=== PATIENT | male | born 1975 | race Caucasian/White ===

== ENCOUNTER 2016-11-23 16:39 | Inpatient (IN) | payer OTHER ==
--- NOTE | ~2016-11-23 | CR72 ---
[facility] A Service of [facility] & [facility] RADIOLOGY TEXT RESULTS PATIENT: DOTTY RAE LOCATION: [facility] : [birth year] UNIT #: [id number] AGE: [address]: Jannette Owen MD SEX: M ORDER DR: [id number] [facility] [address] [facility]. [place], [place] [address] [id number] I MR#: [id number] Acc #: [id number] NAME: DOTTY RAE : 1975 SEX: M STUDY DATE/TIME: 11/27/2016 17:34 UNIT: [facility] ROOM: [facility] STUDY DESCRIPTION: CR Chest Single View Portable Attending Physician: Jannette Owen M.D. Ordering Physician: Jannette Owen M.D. Primary Care Physician: Chela Phan Aprn MEDICAL IMAGING REPORT This report is preliminary unless electronic signature is present EXAM Portable chest HISTORY Pneumonia times 1.5 weeks. COMPARISON 11/23/2016 FINDINGS Portable view of the chest demonstrates slight interval improvement in patient's right lower lobe, right middle lobe infiltrates. There is also a small amount of left upper lobe infiltrate which may actually be increased from the 11/23/2016 study. Mild cardiomegaly. No effusions. Mediastinum unremarkable. No pneumothorax. Dictated by... Abundio Gomez M.D. THIS IS AN ELECTRONICALLY VERIFIED REPORT Abundio Gomez M.D. at 11/28/2016 1:07 PM DOROTHY/erendira TD: 11/27/2016 20:51 JOB #: [id number] MEDICAL IMAGING REPORT Page 1 of 1 COPY
--- NOTE | ~2016-11-23 | EKG ---
PATIENT: DOTTY RAE UNIT #: [id number] Ventricular Rate: 90 BPM Atrial Rate: 90 BPM P-R Interval: 142 ms QRS Duration: 94 ms Q-T Interval: 394 ms QTC Calculation(Bezet): 481 ms P [place]: 51 degrees Calculated R [place]: 8 degrees Calculated T [place]: 52 degrees Diagnosis Line: Normal sinus rhythm Diagnosis Line: Possible Left atrial enlargement Diagnosis Line: Nonspecific T wave abnormality Diagnosis Line: Prolonged QT Diagnosis Line: Abnormal ECG Diagnosis Line: When compared with ECG of 23-NOV-2016 17:56, Diagnosis Line: No significant change was found Diagnosis Line: Confirmed by NUPUR CLARKE MD ([id number]) on Diagnosis Line: 11/24/2016 9:34:33 PM INTERPRETING MD: JESSICA
--- NOTE | ~2016-11-23 | HP ---
Unit #: [id number] #: [id number] Patient: DOTTY RAE [id number] [address] [place], [place] [address] [id number] I MR#: [id number] NAME: DOTTY RAE ROOM: 57439 Age: 41 Sex: M Admission Date: 11/23/2016 : 1975 Attending Physician: Pura Marie M.D. Primary Care Physician: Chela Phan Aprn HISTORY AND PHYSICAL CHIEF COMPLAINT Abdominal pain, nausea and vomiting. HISTORY OF PRESENT ILLNESS The patient is a 41-year-old male with a history of prediabetes, presented to the emergency room complaining of the nausea and abdominal pain for one week. The patient had the workup with the chest x-ray and the CT of the abdomen and chest that showed patient had a multifocal pneumonia. The patient was also found to have hypoxia with the saturations to 88 at room air and the patient was found to have a blood pressure in the range of 221/164. The patient denies any headache or any trauma to the head. The patient is being admitted for the above reasons. PAST MEDICAL HISTORY Prediabetes. PAST SURGICAL HISTORY None. HOME MEDICATIONS Chantix stopped one week ago. ALLERGIES No known drug allergies. FAMILY HISTORY No history of coronary artery disease or diabetes. SOCIAL HISTORY He smokes one-fourth of the pack per day, denies any alcohol use. REVIEW OF SYMPTOMS Fourteen-point review of symptoms performed and only pertinent positive findings as described above, remaining are negative. PHYSICAL EXAMINATION GENERAL APPEARANCE: On examination the patient is sitting on a bed not in acute distress. VITAL SIGNS: Temperature is 97.8, pulse 120, respiratory rate 16, blood pressure 221/164, saturation 99% at room air. HEENT: Head atraumatic, normocephalic. Pupils equal, round and reacting to light and accommodation. Extraocular movements are intact. Dry mucous Unit #: [id number] #: [id number] Patient: DOTTY RAE membranes. NECK: Supple. LUNGS: Decreased air entry at the bases. Positive for rhonchi. HEART: Regular rate and rhythm. ABDOMEN: Soft, positive bowel sounds. EXTREMITIES: No cyanosis. No clubbing. NEUROLOGIC: Awake, alert, oriented. No gross focal motor deficit. DIAGNOSTIC STUDIES LABORATORY DATA: Glucose 161, BUN 28, creatinine 1.6, sodium 131, potassium 3, chloride 96, bicarb 20, calcium 8.3, albumin 2.8, AST 43, ALT of 120, alkaline phosphatase 95, lipase 20 and troponin is 0.08, WBC 18, hemoglobin 11.4, hematocrit 36.4, platelets 384 and neutrophils 84.9. UA shows 3+ protein and 5 to 10 urine WBCs. IMAGING: CT of the chest and abdomen showed the patient had a multifocal pneumonia. CARDIOVASCULAR: The EKG shows normal sinus rhythm, nonspecific T-waves and prolonged QTc of 475. ASSESSMENT 1. Multifocal pneumonia. 2. Hyponatremia. 3. Hypokalemia. 4. Elevated troponin. 5. Acute kidney injury. PLAN 1. Plan is to admit the patient to the inpatient with the telemetry. 2. Continue with the IV antibiotics with the Rocephin and Zithromax. 3. Will have the Cardiology consult for the elevated troponins and the hypertensive urgency. 4. Check the echocardiogram. 5. Repeat the troponin q.8 h. x2. 6. Replace the potassium per protocol. 7. Check the lactic acid for the sepsis protocol. 8. Check the urine toxicology for the drug screen. Further recommendations will follow. Dictated by Damien Easton TD: 11/23/2016 20:04 JOB #: [id number] Unit #: [id number] #: [id number] Patient: DOTTY RAE HISTORY AND PHYSICAL Page 1 of 1 X X HISTORY AND PHYSICAL
--- NOTE | ~2016-11-23 | CT2 ---
[facility] A Service of [facility] & [facility] RADIOLOGY TEXT RESULTS PATIENT: DOTTY RAE LOCATION: [facility] 559-01 : [birth year] UNIT #: [id number] AGE: [address]: Jannette Owen MD SEX: M ORDER DR: [id number] [facility] [address] [place], [place] [address] [id number] E MR#: [id number] Acc #: [id number] NAME: DOTTY RAE : 1975 SEX: M STUDY DATE/TIME: 11/23/2016 17:02 UNIT: [facility] ROOM: STUDY DESCRIPTION: CT Abd and Pelv W Cont Attending Physician: Santo Torrse M.D. Ordering Physician: Santo Torres M.D. Primary Care Physician: Chela Phan Aprn MEDICAL IMAGING REPORT This report is preliminary unless electronic signature is present EXAM CT abdomen and pelvis 11/23/2016 HISTORY Abdomen pain, nausea for [address] exam was performed with one or more of the following radiation dose reduction techniques: automatic control, adjustment of mA and/or kV according to patient size, and iterative reconstruction. FINDINGS CT abdomen and pelvis performed with intravenous administration 100 mL Isovue-370. No prior studies available for comparison. Enteric contrast also administered. The lung bases show extensive airspace disease in the visualized right middle lobe, right lower lobe and to a much lesser extent in the left lower lobe. Areas of judah airspace consolidation are present. Findings are concerning for multifocal bilateral pneumonia. There is a small right pleural effusion which is not a drainable fluid collection. No left effusion is seen. There is an area of somewhat nodular airspace disease posteromedially at the left lung base image #6 measuring about 1.2 cm x 1.2 cm. Given extent of findings, I favor that this is an area of nodular pneumonia. Attention at short-interval followup is recommended. The heart is mildly enlarged. There is a trace amount of ascites adjacent to the liver. Not a drainable fluid collection. The liver is enlarged measuring 20 cm in craniocaudal extent. There is an area of focal fatty infiltration in the left hepatic lobe segment 4B adjacent to falciform ligament. Slightly heterogeneous overall appearance of the liver. Exact etiology unclear. Given the cardiac enlargement and evidence of mild to moderate generalized body wall edema, this may be a reflection of vascular congestion within the liver. Other etiologies not excluded. Correlate clinically. The gallbladder is unremarkable. The spleen, pancreas are unremarkable. The right adrenal STS. [facility] A Service of [facility] RADIOLOGY TEXT RESULTS PATIENT: DOTTY RAE LOCATION: [facility] 559-01 : [birth year] UNIT #: [id number] AGE: [address]: Jannette Owen MD SEX: M ORDER DR: gland is unremarkable. There is an indeterminate 1.3 cm x 1.7 cm x 1.3 cm nodule in the left adrenal gland which does not meet CT criteria for adenoma on basis of this examination. It is best further characterized with MRI if not previously evaluated. Patient not a candidate for MRI, consider adrenal protocol CT. Kidneys show a small 5-6 mm hypodense focus lower pole of the right kidney too small to characterize further but most likely a cyst. Could be further evaluated with elective ultrasound. No hydronephrosis or hydroureter. CT PELVIS: No inguinal adenopathy. Urinary bladder unremarkable. Small amount of free fluid in the pelvis. Not a drainable fluid collection. Haziness and stranding in the retroperitoneum adjacent to the bilateral lower psoas muscles and iliopsoas muscles. No associated drainable fluid collection. Process is bilateral and relatively symmetric though slightly more pronounced on the right. I favor that this is a manifestation of the patient's overall fluid status. The psoas muscles are symmetric without evidence of intramuscular abnormality. No pelvic or retroperitoneal adenopathy. There are some small gastrohepatic ligament nodes and portal nodes. These do not appear pathologically enlarged. The distal esophagus is unremarkable. Mild gastric distension with air and contrast material. Small bowel unremarkable. Appendix normal. Colon decompressed in the transverse and descending/sigmoid colon region without evidence of acute abnormality. The portal vein and its major tributaries are patent. The aorta is normal in caliber. The visualized aortic branch vessels are grossly patent. Bony structures show no acute abnormality. Mild to moderate generalized subcutaneous fat stranding and haziness more pronounced along the posterolateral aspects of the abdominal and upper pelvic body wall consistent with edema. Similar changes seen along the lateral aspects of the hips. IMPRESSION 1. Abnormal examination. Please see the complete dictation above for full details. Multifocal airspace disease in the visualized mid to lower lung zones more pronounced on the right than the left with areas of dense airspace consolidation in the visualized right middle and lower lobes. Extent of the pulmonary parenchymal abnormality is not fully visualized on these images. Correlate with chest radiograph and if felt warranted, CT examination of chest. Appearance favored to represent multifocal bilateral pneumonia more pronounced on right than left and followup to complete radiographic resolution is recommended. A component of the airspace disease at the left lung base posteromedially on image 6 has a nodular configuration measuring about 1.2 cm in diameter. I favor that this is simply a manifestation of the presumed pneumonia. Attention at followup recommended to confirm resolution. If this nodular density persists with clearance of other airspace process, consider CT/PET scan for further characterization. 2. Small right pleural effusion. Not a drainable fluid collection. [facility] A Service of [facility] RADIOLOGY TEXT RESULTS PATIENT: DOTTY RAE LOCATION: [facility] 559-01 : [birth year] UNIT #: [id number] AGE: [address]: Jannette Owen MD SEX: M ORDER DR: 3. There is mild cardiac enlargement. 4. Small-volume ascites adjacent to liver. Not a drainable fluid collection. 5. Hepatic enlargement up to about 20 cm in craniocaudal extent with slightly heterogeneous overall appearance of the hepatic parenchyma. No suspicious focal abnormality is seen. Cause for the appearance of the hepatic parenchyma is unclear. Given the cardiac enlargement and a suggestion of body wall edema, the possibility of vascular congestion could be considered as cause for the appearance of hepatic parenchyma. Please correlate with laboratory data and clinical presentation. 6. Gallbladder normal. 7. Indeterminate 1.3-1.7 cm nodule in the left adrenal gland not meeting criteria for adenoma on basis of this examination. Best fully characterized with adrenal protocol MRI if patient is candidate or adrenal protocol CT. These studies can be performed on an elective basis. 8. No acute abnormality is seen along the alimentary canal. Small bowel appendix and colon unremarkable. Mild distension of stomach with air and contrast material, felt to be physiologic in nature. 9. A 5-6 mm hypodense focus lower pole right kidney most likely a small cyst. Best further evaluated with elective ultrasound. 10. Mild to moderate body wall edema most pronounced in the posterolateral abdominal and upper pelvic body wall and along the posterolateral upper thighs. Dictated by... Jose Stoner M.D. THIS IS AN ELECTRONICALLY VERIFIED REPORT Jose Stoner M.D. at 11/30/2016 11:07 PM CRISTINE/sarai TD: 11/23/2016 18:30 JOB #: [id number] MEDICAL IMAGING REPORT Page 1 of 1 COPY
--- NOTE | ~2016-11-23 | CR72 ---
[facility] A Service of [facility] RADIOLOGY TEXT RESULTS PATIENT: DOTTY RAE LOCATION: [facility] : [birth year] UNIT #: [id number] AGE: [address]: Jannette Owen MD SEX: M ORDER DR: [id number] [facility] [address] [place], [place] [address] [id number] E MR#: [id number] Acc #: [id number] NAME: DOTTY RAE : 1975 SEX: M STUDY DATE/TIME: 11/23/2016 18:07 UNIT: [facility] ROOM: STUDY DESCRIPTION: CR Chest Single View Portable Attending Physician: Santo Torres M.D. Ordering Physician: Santo Torres M.D. Primary Care Physician: Chela Phan Aprn MEDICAL IMAGING REPORT This report is preliminary unless electronic signature is present EXAM Portable chest x-ray 11/23/2016 HISTORY Pneumonia seen on CT. FINDINGS AP radiograph of chest presented. Comparison to images of thorax from CT abdomen pelvis earlier same date. No acute-appearing bony abnormality. Mild cardiac enlargement. Lungs are well inflated. Borderline vascular prominence. This may be a reflection of some degree of vascular congestion. Airspace disease bilateral yyg-zx-uwivm lung zones significantly more pronounced on right than left with areas of dense airspace consolidation in the right lower lung zone. No pneumothorax. Small right pleural effusion seen on CT abdomen pelvis not well demonstrated on plain radiograph. I would favor the airspace disease represents bilateral multifocal pneumonia more pronounced on right than left. Appearance would be atypical for pulmonary edema. Please correlate with the patient's clinical exam. Followup to complete radiographic resolution strongly recommended. Dictated by... Jose Stoner M.D. THIS IS AN ELECTRONICALLY VERIFIED REPORT Jose Stoner M.D. at 11/29/2016 10:21 PM CRISTINE/sarai TD: 11/23/2016 19:05 [facility] A Service of [facility] RADIOLOGY TEXT RESULTS PATIENT: DOTTY RAE LOCATION: [facility] 559-01 : [birth year] UNIT #: [id number] AGE: [address]: Jannette Owen MD SEX: M ORDER DR: JOB #: [id number] MEDICAL IMAGING REPORT Page 1 of 1 COPY
--- NOTE | ~2016-11-23 | DS ---
Unit #: [id number] #: [id number] Patient: DOTTY RAE [id number] [address] [place], [place] [address] [id number] MR#: [id number] NAME: DOTTY RAE ROOM: 559 Age: 41 Sex: M Admission Date: 11/23/2016 : 1975 Discharge Date: 11/29/2016 Attending Physician: Jannette Owen M.D. Primary Care Physician: Chela Phan, Pharmacy Innovation Assistant DISCHARGE SUMMARY REASON FOR ADMISSION Abdominal pain, nausea and vomiting. HISTORY OF PRESENT ILLNESS/HOSPITAL COURSE The patient is a 41-year-old male with past history of pre-diabetes and possibly hypertension who presented secondary to nausea and abdominal pain. He had initial chest x-ray as well as CT abdomen and pelvis which raised the possibility of multifocal pneumonia. His CT abdomen and pelvis was otherwise unremarkable with the exception of a small adrenal nodule which was noted. His blood pressure was noted to be 221/164. He was admitted for the same. Initial urine toxicology screen was negative. Cardiac enzymes were cycled. His initial troponin was mildly elevated at 0.12 which later turned out to be his peak level. In regard to the same, consultation was placed to cardiology services, Dr. Mcgrath's service saw and evaluated the patient. The patient underwent 2D echocardiogram which did show a severely reduced ejection fraction of 15% to 20% with severe mitral regurgitation which was also noted. It was felt as though his systolic heart failure as well as the findings were likely secondary to his prolonged alcohol abuse that he had had through his lifetime. He was placed on appropriate afterload reduction as well as blood pressure control, however, his kidney function gradually declined and nephrology services were consulted. Dr. Arceo saw and evaluated the patient. The patient subsequently developed bradycardia as well as sinus pauses. In regard to the same, Dr. Mcgrath performed a cardiac catheterization on 11/29/2016 which revealed normal coronaries but it did show an ejection fraction closer to 35% to 40%. Dr. Arceo did evaluate and workup the patient for possible pheochromocytoma. Labs are currently pending and medications have been adjusted as per below. Dr. Arceo has recommended CMP on the week of 12/05/2016 as well as those results to be faxed to his office; a home blood pressure monitor to which patient should be checking his blood pressure on a daily basis. Unit #: [id number] #: [id number] Patient: DOTTY RAE The patient was strongly advised to discontinue alcohol altogether. His hemoglobin A1c this hospital admission was 6.6%. He will not be started on any diabetic medications at the present time but this will be diverted to his primary care provider. His LDL was 85, HDL 23, triglycerides 120, cholesterol 132. The patient did under an MRI of his kidneys with and without on, 11/27/2016, which did show an indeterminate left adrenal nodule 1.7 cm x 1.3 cm corresponding to the aforementioned CT. It does not demonstrate signal dropout and is not characteristic of an adrenal adenoma. However, short-term three month followup was recommended. The patient did have significantly elevated LFTs consistent with transaminitis with AST and ALT greater than 2000 on admission. It was likely felt to be secondary to passive congestion from his heart failure. On 11/28/2016, his discharge LFTs remain with an AST of 51 and ALT of 190 and they have decreased throughout his hospital course. At time of discharge, his creatinine currently stands at 1.7. His hemoglobin is 11.9, likely representing his baseline. He does have an MCV of 79.5. Blood cultures have not yielded any acute bacterial growth. Dr. Lamas pulmonary services was consulted in regard to his multifocal pneumonia and he recommended IV antibiotics while here and has since been transitioned to Omnicef at time of discharge. FINAL DISCHARGE DIAGNOSES 1. Acute hypoxic respiratory failure on admission, now improved. 2. Multifocal pneumonia, now improved. 3. Systolic heart failure with ejection fraction 35% to 40% seen on cardiac catheterization. 4. Alcohol-induced cardiomyopathy. 5. Gmdcjglu-rc-ucdyyn mitral regurgitation. 6. Sinus bradycardia. 7. Likely obstructive sleep apnea. Outpatient evaluation with Dr. Lamas currently pending. 8. Accelerated/hypertensive urgency. 9. Chronic kidney disease baseline creatinine 1.8. 10. Anemia. 11. Prior history of alcohol abuse. 12. Prior history of tobacco abuse. 13. Diabetes. Hemoglobin A1c 6.6% currently on diet modifications. 14. Adrenal nodule. Outpatient three-month follow up recommended. 15. Obesity. DISCHARGE MEDICATIONS 1. Tylenol 650 mg p.o. q.6 h. p.r.n. 2. Coreg 12.5 mg p.o. b.i.d. 3. Norvasc 5 mg p.o. b.i.d. 4. Omnicef 300 mg p.o. b.i.d. times 5 days. 5. Lasix 40 mg p.o. b.i.d. 6. Lipitor 20 mg p.o. daily. 7. Hydralazine 100 mg p.o. q.8 h. Unit #: [id number] #: [id number] Patient: DOTTY RAE 8. Minoxidil 2.5 mg p.o. b.i.d. 9. Altace 5 mg p.o. daily. 10. Aldactone 100 mg p.o. b.i.d. DISCHARGE CONDITION Stable. DISCHARGE DISPOSITION Home. FOLLOWUP Chela Phan, nurse practitioner at [facility] in 7-10 days. Dictated by... Damien Payne/zeke TD: 11/29/2016 20:46 JOB #: [id number] DISCHARGE SUMMARY Page 1 of 1 X Jannette Owen MD X DISCHARGE SUMMARY
--- NOTE | ~2016-11-23 | EKG ---
PATIENT: DOTTY RAE UNIT #: [id number] Ventricular Rate: 93 BPM Atrial Rate: 93 BPM P-R Interval: 172 ms QRS Duration: 98 ms Q-T Interval: 414 ms QTC Calculation(Bezet): 514 ms P [place]: 57 degrees Calculated R [place]: 7 degrees Calculated T [place]: 30 degrees Diagnosis Line: Normal sinus rhythm Diagnosis Line: Possible Left atrial enlargement Diagnosis Line: Nonspecific ST and T wave abnormality Diagnosis Line: Prolonged QT Diagnosis Line: Abnormal ECG Diagnosis Line: When compared with ECG of 24-NOV-2016 07:19, Diagnosis Line: Nonspecific T wave abnormality no longer evident Diagnosis Line: in Anterior leads Diagnosis Line: Confirmed by NUPUR CLARKE MD ([id number]) on Diagnosis Line: 11/27/2016 12:47:40 PM INTERPRETING MD: JESSICA
--- NOTE | ~2016-11-23 | CO ---
Unit #: [id number] #: [id number] Patient: DOTTY RAE [id number] [facility] [address]. [place], [place] [address] [id number] I MR#: [id number] NAME: DOTTY RAE ROOM: 559 Age: 41 Sex: M Admission Date: 11/23/2016 : 1975 Attending Physician: Jannette Owen M.D. Primary Care Physician: Dami Weber Aprn Consultation Date: 11/24/2016 CONSULTATION REPORT JOB NOTE: CC: [facility]. DAMI WEBRE APRN. REASON FOR CONSULTATION Hypertension and elevated troponin. HISTORY OF PRESENT ILLNESS This is a 41-year-old white male, who presented to the emergency room with a complaint of abdominal pain and nausea for one week. He reports shortness of breath on exertion, and leg edema. Positive for paroxysmal nocturnal dyspnea. He went to see his primary care physician in 08/2016, and felt he had a normal blood pressure at that time. He was told that he had prediabetes and was instructed to exercise and monitor his diet. He was not given any medications. He has some type of unemployment physical at work over months ago, where his blood pressure was elevated. He came to the emergency room, where he was found to be hypertensive with blood pressure of 221/164. He was treated with labetalol. CT of the abdomen revealed mild cardiac enlargement and bvux-[id number] body wall edema in the posterolateral abdomen and upper pelvic body. Chest x-ray findings are consistent with multifocal pneumonia. He was treated with IV antibiotics. He was found to be in acute kidney injury with creatinine of 1.6, the later leyda to 2.0. His initial troponin elevated at 0.08, that is now peaked to 0.12. His electrocardiogram had no acute ischemic changes. He has had no prior cardiac history or testing. Risk factors for ischemic heart disease includes hypertension, prediabetes, and nicotine abuse. Upon further questioning, the patient states he binge drinks over the weekend with at least 12 beers. PAST MEDICAL HISTORY 1. Prediabetes. 2. Active smoker. 3. EtOH abuse. PAST SURGICAL HISTORY No previous surgeries. SOCIAL HISTORY The patient is . He works in a warehouse. He states he is reasonably active. He denies illicit drug use, but binge drinks on the weekends at least 12 beers per weekend. ALLERGIES No known drug allergies. Unit #: [id number] #: [id number] Patient: DOTTY RAE HOME MEDICATIONS No prior home medications. REVIEW OF SYSTEMS CONSTITUTIONAL: Negative for weakness and fatigue. No fever or chills. Has a slight weight gain. HEENT: No headache, hearing or vision changes, difficulty with swallowing. No dizziness. CARDIOVASCULAR: Has no symptoms of angina. Denies palpitations. Positive for paroxysmal nocturnal dyspnea. No syncope or near syncope. RESPIRATORY: Positive for dyspnea on exertion. No cough or hemoptysis. GASTROINTESTINAL: Positive for abdominal pain. No constipation, melena, or nausea. EXTREMITIES: Positive for lower extremity edema. PHYSICAL EXAMINATION VITAL SIGNS: Blood pressure 174/129, heart rate 91, temperature 97.5, BMI 30. GENERAL: This is a pleasant young mildly obese white male, who is in no acute respiratory distress. NEUROLOGIC: He is awake, alert, and oriented. There are no focal weaknesses. NECK: Trachea is midline. No thyromegaly or lymphadenopathy. No jugular venous distention. HEART: S1, S2. No S3 or S4. No murmurs, rubs, or clicks. Regular rate and rhythm. CHEST: Rales in the right base. No wheezes or rhonchi. ABDOMEN: With tenderness in the right upper quadrant. No ascites. EXTREMITIES: With 2+ leg edema. TOOL ADJUSTER: Within normal limits. DIAGNOSTIC STUDIES LABORATORY RESULTS: Sodium 136, potassium 4.6, BUN 31, creatinine 2.0, glucose 126. Troponin 0.08 to 0.12 to 0.10. BNP 2925. Hemoglobin A1c 6.6. White count 19.8, hemoglobin 10.5, hematocrit 34.6, platelet count is 397. Urine tox screen negative. IMAGING STUDIES: Chest x-ray shows multifocal bilateral pneumonia. CT of the abdomen and pelvis shows multifocal airspace disease consistent with multifocal bilateral pneumonia. Mild cardiac enlargement. Small volume ascites adjacent to the liver. Hepatic enlargement. CARDIOVASCULAR STUDIES: EKG; normal sinus rhythm, rate of 95 beats per minute with nonspecific ST wave abnormalities. IMPRESSION 1. Pneumonia with questionable sepsis. 2. Acute kidney injury secondary to NSAID and low cardiac output state. 3. 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 4. Elevated LFTs secondary to hepatic congestion or EtOH hepatitis. 5. Newly diagnosed hypertension. 6. Elevated troponin, questionable etiology, cannot rule out non-STEMI. 7. Newly diagnosed diabetes mellitus type 2. PLAN 1. Cardiology was consulted for elevated troponin. We will check echocardiogram to evaluate left ventricular systolic function to redirect Unit #: [id number] #: [id number] Patient: DOTTY RAE fluid treatment accordingly. 2. Questionable nephrology opinion. 3. Control blood pressure with addition of beta-johann with hydralazine. 4. We will follow the patient with you. Thank you for allowing us to assist in this patient's care. Dictated by... Shree Garces A.P.R.N. for Damien Tejeda/omer TD: 11/27/2016 23:53 JOB #: [id number] CONSULTATION REPORT Page 1 of 1 X Shree Garces APRN X CONSULTATION REPORT
--- NOTE | ~2016-11-23 | MR95 ---
[facility] A Service of [facility] RADIOLOGY TEXT RESULTS PATIENT: DOTTY RAE LOCATION: [facility] 559-01 : [birth year] UNIT #: [id number] AGE: [address]: Jannette Owen MD SEX: M ORDER DR: [id number] [facility] [address] [place], [place] [address] [id number] I MR#: [id number] Acc #: [id number] NAME: DOTTY RAE : 1975 SEX: M STUDY DATE/TIME: 11/27/2016 15:15 UNIT: [facility] ROOM: [facility] STUDY DESCRIPTION: MR Kidneys WWo Contrast Attending Physician: Jannette Owen M.D. Ordering Physician: Prabhakar Arceo Jr., M.D. Primary Care Physician: Chela Phan Aprn MRI CENTER REPORT This report is preliminary unless electronic signature is present. EXAM MRI adrenal glands without and with IV gadolinium. HISTORY Left adrenal nodule on CT 11/23/2016. FINDINGS MRI of the adrenal glands was performed without and with IV gadolinium and is compared to CT 11/23/2016. The oval nodule in the medial left adrenal gland is again demonstrated, corresponding to the 1.3 cm x 1.7-cm nodule on recent CT. The lesion does not demonstrate signal dropout on opposed-phase scanning, and the appearance is not diagnostic of an adrenal adenoma. There is mild peripheral enhancement of the left adrenal nodule on the post-gadolinium scans, with a central hypoenhancing component, which is nonspecific. No additional adrenal nodule. Incidental tiny 4-mm cyst in the lower pole of the right kidney. No hydronephrosis. IMPRESSION Indeterminate left adrenal nodule corresponding to the 1.7 cm x 1.3-cm nodule on CT 11/23/2016. The lesion does not demonstrate signal dropout on the opposed-phase scan and is, therefore, not characteristic of an adrenal adenoma and remains technically indeterminate. Short-term followup noncontrast CT abdomen recommended in 3-4 months to evaluate for stability of this nodule. Dictated by... Maximiliano Ramirez M.D. THIS IS AN ELECTRONICALLY VERIFIED REPORT Maximiliano Ramirez M.D. at 11/27/2016 10:50 PM [facility] A Service of [facility] RADIOLOGY TEXT RESULTS PATIENT: DOTTY RAE LOCATION: [facility] 559- : [birth year] UNIT #: [id number] AGE: [address]: Jannette Owen MD SEX: M ORDER DR: ISAIAH/erendira TD: 11/27/2016 19:45 JOB #: [id number] MRI CENTER REPORT Page 1 of 1 COPY
--- NOTE | ~2016-11-23 | EKG ---
PATIENT: DOTTY RAE UNIT #: [id number] Ventricular Rate: 93 BPM Atrial Rate: 93 BPM P-R Interval: 166 ms QRS Duration: 100 ms Q-T Interval: 372 ms QTC Calculation(Bezet): 462 ms P [place]: 51 degrees Calculated R [place]: 7 degrees Calculated T [place]: 140 degrees Diagnosis Line: Normal sinus rhythm Diagnosis Line: Possible Left atrial enlargement Diagnosis Line: Left ventricular hypertrophy Diagnosis Line: Prolonged QT Diagnosis Line: Abnormal ECG Diagnosis Line: Diagnosis Line: Confirmed by NUPUR CLARKE MD ([id number]) on Diagnosis Line: 11/29/2016 10:24:17 PM INTERPRETING MD: JESSICA
--- NOTE | ~2016-11-23 | EKG ---
PATIENT: DOTTY RAE UNIT #: [id number] Ventricular Rate: 94 BPM Atrial Rate: 94 BPM P-R Interval: 142 ms QRS Duration: 96 ms Q-T Interval: 404 ms QTC Calculation(Bezet): 505 ms P [place]: 49 degrees Calculated R [place]: 24 degrees Calculated T [place]: 24 degrees Diagnosis Line: Normal sinus rhythm Diagnosis Line: Nonspecific T wave abnormality Diagnosis Line: Prolonged QT Diagnosis Line: Abnormal ECG Diagnosis Line: No previous ECGs available Diagnosis Line: Confirmed by PRIYA MITTAL MD ([id number]) on 11/24/2016 Diagnosis Line: 5:05:01 AM INTERPRETING MD: DAXA RAMIREZ
--- NOTE | ~2016-11-23 | CO ---
Unit #: [id number] #: [id number] Patient: DOTTY RAE [id number] [address] [place], [place] [address] [id number] I MR#: [id number] NAME: DOTTY RAE ROOM: 559 Age: 41 Sex: M Admission Date: 11/23/2016 : 1975 Attending Physician: Jannette Owen M.D. Primary Care Physician: Chela Phan Aprn Consultation Date: 11/24/2016 CONSULTATION REPORT REASON FOR CONSULTATION Renal insufficiency with a creatinine of 2. HISTORY OF PRESENT ILLNESS Mr. Rae is a 41-year-old male with an unremarkable past medical history with the exception of some "prediabetes," who presented to the emergency room with complaints of nausea and abdominal pain with some constipation. This had been going on for several days. The patient was initially diagnosed with multifocal pneumonia and started on antibiotics. However, evaluation here quickly suggested that this may be congestive heart failure from alcoholism and alcoholic cardiomyopathy and this was confirmed by an echocardiogram. He continues on the antibiotics, but is now getting treatment for congestive heart failure. He showed me lab on his phone from 09/2016 with a creatinine of 1.5. He had been told by his primary care physician that his renal function was a little abnormal. He had significant hypertension on admission which is a new diagnosis. However, there is a strong family history of hypertension. He has not used any NSAIDs recently other than some aspirin. He denies any history of kidney stones. There are no urinary complaints. He has noticed some swelling in his legs and has also noticed some dyspnea on exertion. PAST MEDICAL HISTORY Significant for prediabetes alcoholism. PAST SURGICAL HISTORY None. HOME MEDICATIONS Chantix. ALLERGIES No known drug allergies. FAMILY HISTORY Negative for kidney disease or dialysis. There is a family history of hypertension. SOCIAL HISTORY The patient does smoke. He says he stopped drinking alcohol a few months ago, before that he was drinking up to 12 beers a day. He smokes marijuana when he was younger, but no history of IV drug use. REVIEW OF SYSTEMS A complete 12-point review of systems was completed with the above Unit #: [id number] #: [id number] Patient: DOTTY RAE findings. In addition, he has not had any fevers or chills. No headaches or dizziness. No nosebleed. No sore throat. No earache. No chest pain. No palpitations. No hemoptysis. No vomiting with nausea. No diarrhea. No bright red blood per rectum or melena. No dysuria or hematuria. No rashes or itching. No flank pain. No night sweats or hot flashes. No intolerance to heat or cold. No bleeding issues. He thinks he may have been gaining some weight as of late. Unless otherwise indicated, the review of systems was negative. PHYSICAL EXAMINATION VITAL SIGNS: The patient is afebrile; pulse 98; respiratory rate 24; blood pressure still 207/139, it did drop to 124/103. I's and O's are positive by 1300 mL so far. GENERAL: This is a pleasant 41-year-old male, alert, sitting up in a chair in no acute distress. HEENT: Head is atraumatic and normocephalic. Eyes show pink conjunctivae. No nasal drainage or nosebleed. Oropharynx is moist with no thrush. He does have a fairly narrow posterior pharyngeal airway. NECK: Thick. No rigidity. HEART: Regular rate and rhythm with no gallop or rub appreciated. LUNGS: Shows some bibasilar rales more so on the right than the left. Breathing is nonlabored at rest. No wheezing. ABDOMEN: Protuberant, soft, nontender, bowel sounds are present. EXTREMITIES: Noteworthy for no lower extremity clubbing or cyanosis. He has 1+ pitting edema below the knees bilaterally. SKIN: Dry without rashes. MUSCULOSKELETAL: No CVA tenderness to palpation. NEUROLOGIC: Cranial nerves are grossly intact with no focal neurologic deficits. LYMPHATIC: There is no neck or cervical lymphadenopathy. PSYCHIATRIC: Mood and affect appear normal. DIAGNOSTIC STUDIES LABORATORY RESULTS: BNP was 2900. Liver function tests were quite elevated at 383 and 379 respectively with a normal total bilirubin. Albumin was just 2.3, Mag was 2.2. Urine culture is negative thus far. Chemistry this morning showed a sodium of 132, potassium 4.6, chloride 102, bicarb 18, glucose 126, BUN 31, creatinine of 2. CBC showed a white count of 19, hemoglobin 10.5, platelet count 397 with a slight left shift, no peripheral eosinophilia. Lactic acid level was high at 3.2. Urine drug screen was negative. CK level was 59. Admission potassium was just 3, admission sodium level 131, admission creatinine was 1.6. AST and ALT were high at 43 and 120 respectively. UA did show 3+ protein, but 0 to 2 red blood cells per high-powered field. No prior creatinines to compare these two. IMAGING STUDIES: Chest x-ray on admission showed vascular prominence with bilateral airspace disease with a small right pleural effusion. CT of the abdomen and pelvis did show some air space disease bilaterally. There was some ascites and fatty infiltration in the left hepatic lobe and a heterogeneous appearance to the liver, it was a 1.7 x 1.3 cm nodule in the left adrenal gland. Kidneys show a cyst in the lower pole of the right kidney with some body wall edema as well. ASSESSMENT AND PLAN 1. Acute on possible chronic kidney disease, stage 3. Again, the patient had a baseline creatinine of 1.5 in 09/2016. I certainly wonder if he Unit #: [id number] #: [id number] Patient: DOTTY RAE does not have some underlying hypertensive disease as he does have a family history. There also is an element of acute kidney injury which may be related to his hypertensive urgency and prerenal stress from cardiomyopathy. We will continue with aggressive congestive heart failure treatment. He does have some urinary protein which we will quantitate. I am also concerned about his low albumin but this may be more a function of his underlying liver issues than kidney losses. We will follow up serologies and make further recommendations for the need for any biopsy. 2. Congestive heart failure systolic in nature with an ejection fraction as reported as 20% by Dr. Mcgrath. He is on dobutamine and we will can continue IV Bumex tonight. 3. 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 The patient has stopped drinking. 4. Hypertensive urgency. We will continue diuresis. Hydralazine has been increased and I will also put him on some p.r.n. hydralazine as needed. 5. Questionable pneumonia, on antibiotics. 6. Admission hypokalemia. I certainly wonder if he does not have an underlying endocrine disorder considering his abnormal CT scan of the abdomen as far as his adrenal gland is concerned. I will be sending off renin and aldosterone levels with tomorrow morning's labs. I would like to thank Dr. Marie for this consult and the opportunity to participate in evaluation and care Mr. Leija. Dictated by... Prabhakar Arceo Jr., M.D. SJK/omer TD: 11/25/2016 02:55 JOB #: [id number] CONSULTATION REPORT Page 1 of 1 X Prabhakar Arceo MD X CONSULTATION REPORT
--- NOTE | ~2016-11-23 | CO ---
Unit #: [id number] #: [id number] Patient: DOTTY RAE [id number] [address] [place], [place] [address] [id number] I MR#: [id number] NAME: DOTTY RAE ROOM: 559 Age: 41 Sex: M Admission Date: 11/23/2016 : 1975 Attending Physician: Jannette Owen M.D. Primary Care Physician: Chela Phan Aprn CONSULTATION REPORT REASON FOR CONSULTATION Obstructive sleep apnea and pneumonia. CHIEF COMPLAINT Shortness of breath. 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 Abdominal CT showed a right middle lobe and right lower lobe infiltrate, and he has been admitted with the impression of pneumonia. Echocardiogram showed an ejection fraction of 15%. Patient's is mentioning that he stops breathing and also has witnessed apneas and loud snoring. Patient complains of daytime fatigue and sleepiness and also has been complaining of exertional dyspnea. REVIEW OF SYSTEMS Positive for pallor. No edema, no cyanosis, and no jaundice. The rest is per History of Present Illness. The rest of a 12-point review of systems has been reviewed and is negative. PHYSICAL EXAMINATION VITAL SIGNS: Temperature is 97, pulse 90, respirations 16, and blood pressure 130/70. NEUROLOGICAL: Awake, alert, and oriented, with no neurological deficits. HEENT: Pupils equal, round, and reactive to light and accommodation. Extraocular movements are intact. NECK: Supple. No JVD. CHEST: Bilateral air entry, bilateral mild rhonchi. GASTROINTESTINAL: Nontender and soft. Bowel sounds positive. EXTREMITIES: No edema. SKIN: No rashes and no ulcers. LYMPHATICS: No lymphadenopathy. DIAGNOSTIC STUDIES LABORATORY: Reviewed. IMAGING: Reviewed. ASSESSMENT AND PLAN Questionable pneumonia and obstructive sleep apnea. The patient will definitely benefit from an outpatient sleep study. Continue diuretics, repeat chest x-ray, and procalcitonin level. Discontinue antibiotics and Unit #: [id number] #: [id number] Patient: DOTTY RAE observe the patient. We will continue to monitor. Please see orders for detailed plans. We will arrange for an outpatient sleep study. Will start patient on BiPAP. Sleep hygiene was discussed with the patient. Weight loss is the tsai. Continue to optimize cardiac status of the patient. Thank you very much for this consultation. Dictated by... Damien Haque TD: 11/27/2016 15:16 JOB #: [id number] CONSULTATION REPORT Page 1 of 1 X Regan Lamas MD X CONSULTATION REPORT
[2016-11-23 14:55] LABS: URINE SOURCE CLEAN CATCH
[2016-11-23 15:00] LABS: URINE APPEARANCE CLEAR; URINE BILIRUBIN NEG (NEG); URINE BLOOD 1+ (NEG); URINE COLOR YELLOW; URINE GLUCOSE NEG (NEG); URINE KETONE NEG (NEG); URINE LEUKOCYTE ESTERASE NEG (NEG); URINE NITRATE NEG (NEG); URINE PH 5.5 (5-8); URINE PROTEIN 3+ (NEG)
[2016-11-23 15:01] LABS: CULTURE INDICATED? YES; URBCS1 AUWI 0-2 /[HPF] (0-2); URINE BACTERIA AUWI NEG (NEGATIVE); URINE SQUAMOUS EPITHELIAL CELL FEW /[HPF]
[2016-11-23 15:13] LABS: URINE GRANULAR CAST 0-2 /[HPF]; URINE WHITE BLOOD CELL CAST 0-2 /[HPF]
[2016-11-23 15:40] LABS: BASOPHIL# 0.1 X10e3 (0-0.3); BASOPHIL% 0.3 % (0-2.5); EOSINOPHIL# 0.1 X10e3 (0-0.7); EOSINOPHIL% 0.4 % (0.0-7.0); HEMATOCRIT 36.4 % (38.0-50.0); HEMOGLOBIN 11.4 gm/dL (13.0-16.0); LYMPHOCYTE# 1.6 X10e3 (1.0-3.5); LYMPHOCYTE% 8.9 % (17.0-45.0); MEAN CELL VOLUME 81.2 FL (83-96); MEAN CORPUSCULAR HEMOGLOBIN 25.4 PG (28-34); MEAN CORPUSCULAR HGB CONC 31.3 g/dL (30-36); MEAN PLATELET VOLUME 8.5 FL (6.5-11.5); MONOCYTE% 5.5 % (3.0-12.0); NEUTROPHIL# 15.3 X10e3 (1.5-7.1); NEUTROPHIL% 84.9 % (40-75); PLATELET COUNT 384 X10e3 (140-420); RED BLOOD COUNT 4.49 X10e (3.90-5.60); RED CELL DISTRIBUTION WIDTH 17.5 % (11.0-15.5)
[2016-11-23 15:41] LABS: DIFF IND YES
[2016-11-23 15:59] LABS: ALBUMIN SERUM 2.8 g/dL (3.5-5.0); BILIRUBIN, DIRECT 0.2 mg/dL (0.0-0.2); BILIRUBIN,INDIRECT 0.3 mg/dL (0.0-0.9); BILIRUBIN,TOTAL 0.5 mg/dL (0.2-2.0); BUN/CREATININE RATIO 17.5; CALCIUM SERUM 8.3 mg/dL (8.4-10.2); CREATININE SERUM 1.6 mg/dL (0.6-1.4); GLOM FILT RATE Estimated 53.5 mL/min (>60); PROTEIN TOTAL SERUM 7.1 g/dL (6.0-8.3)
[2016-11-23 16:03] LABS: RBC NORMAL YES
[2016-11-23 16:17] LABS: PLATELET ESTIMATE INCREASED (NORMAL)
[2016-11-23 18:35] LABS: CK TOTAL 59 IU/L (36-174)
[2016-11-23] MEDS ORDERED: NO MEDICATIONS (20:30)
[2016-11-23 21:02] LABS: AMPHETAMINE NEG (NEG); BARBITURATES NEG (NEG); BENZODIAZEPINES NEG (NEG); COCAINE NEG (NEG); MARIJUANA NEG (NEG); OPIATES NEG (NEG); TRICYCLIC ANTIDEPRESSANTS NEG (NEG); U METHADONE NEG (NEG)
[2016-11-24 05:40] LABS: BASOPHIL# 0.1 X10e3 (0-0.3); BASOPHIL% 0.3 % (0-2.5); HEMATOCRIT 34.6 % (38.0-50.0); HEMOGLOBIN 10.5 gm/dL (13.0-16.0); LYMPHOCYTE# 1.9 X10e3 (1.0-3.5); LYMPHOCYTE% 9.8 % (17.0-45.0); MEAN CELL VOLUME 82.9 FL (83-96); MEAN CORPUSCULAR HEMOGLOBIN 25.3 PG (28-34); MEAN CORPUSCULAR HGB CONC 30.5 g/dL (30-36); MEAN PLATELET VOLUME 8.3 FL (6.5-11.5); MONOCYTE# 1.2 X10e3 (0-1.0); MONOCYTE% 6.2 % (3.0-12.0); NEUTROPHIL# 16.6 X10e3 (1.5-7.1); NEUTROPHIL% 83.7 % (40-75); PLATELET COUNT 397 X10e3 (140-420); RED BLOOD COUNT 4.17 X10e (3.90-5.60); RED CELL DISTRIBUTION WIDTH 17.1 % (11.0-15.5); WHITE BLOOD COUNT 19.8 X10e3 (4.0-10.5)
[2016-11-24 05:45] LABS: DIFF IND NO
[2016-11-24 06:24] LABS: BUN/CREATININE RATIO 15.5; CALCIUM SERUM 7.8 mg/dL (8.4-10.2); GLOM FILT RATE Estimated 40.8 mL/min (>60); POTASSIUM 4.6 mmol/L (3.5-5.1)
[2016-11-24 08:06] LABS: ALBUMIN SERUM 2.3 g/dL (3.5-5.0); BILIRUBIN, DIRECT 0.4 mg/dL (0.0-0.2); BILIRUBIN,INDIRECT 0.4 mg/dL (0.0-0.9); BILIRUBIN,TOTAL 0.8 mg/dL (0.2-2.0); PROTEIN TOTAL SERUM 5.5 g/dL (6.0-8.3)
[2016-11-24 21:01] LABS: CREATININE,RANDOM URINE 10 mg/dL; TOTAL PROTEIN,RANDOM URINE <10 mg/dl (<10)
[2016-11-25 07:53] LABS: ALBUMIN SERUM 2.3 g/dL (3.5-5.0); BILIRUBIN,TOTAL 0.8 mg/dL (0.2-2.0); BUN/CREATININE RATIO 16.66; CALCIUM SERUM 7.9 mg/dL (8.4-10.2); CREATININE SERUM 1.8 mg/dL (0.6-1.4); GLOM FILT RATE Estimated 46.4 mL/min (>60); MAGNESIUM 1.8 mg/dL (1.6-3.0); POTASSIUM 3.1 mmol/L (3.5-5.1); PROTEIN TOTAL SERUM 5.7 g/dL (6.0-8.3)
[2016-11-26 06:43] LABS: ALBUMIN SERUM 2.3 g/dL (3.5-5.0); BILIRUBIN,TOTAL 0.5 mg/dL (0.2-2.0); BUN/CREATININE RATIO 17.5; CALCIUM SERUM 7.9 mg/dL (8.4-10.2); CREATININE SERUM 1.6 mg/dL (0.6-1.4); GLOM FILT RATE Estimated 53.5 mL/min (>60); MAGNESIUM 2.1 mg/dL (1.6-3.0); POTASSIUM 3.6 mmol/L (3.5-5.1); PROTEIN TOTAL SERUM 5.3 g/dL (6.0-8.3)
[2016-11-27 04:43] LABS: COMPLEMENT C3 121 mg/dL (90-180); COMPLEMENT C4 28 mg/dL (16-47)
[2016-11-27 05:27] LABS: HEMATOCRIT 35.7 % (38.0-50.0); HEMOGLOBIN 11.3 gm/dL (13.0-16.0); MEAN CELL VOLUME 80.7 FL (83-96); MEAN CORPUSCULAR HEMOGLOBIN 25.5 PG (28-34); MEAN CORPUSCULAR HGB CONC 31.6 g/dL (30-36); MEAN PLATELET VOLUME 7.1 FL (6.5-11.5); RED BLOOD COUNT 4.43 X10e (3.90-5.60)
[2016-11-27 05:57] LABS: ALBUMIN SERUM 2.5 g/dL (3.5-5.0); BILIRUBIN,TOTAL 0.8 mg/dL (0.2-2.0); BUN/CREATININE RATIO 17.64; CALCIUM SERUM 8.1 mg/dL (8.4-10.2); CREATININE SERUM 1.7 mg/dL (0.6-1.4); GLOM FILT RATE Estimated 49.7 mL/min (>60); POTASSIUM 3.5 mmol/L (3.5-5.1); PROTEIN TOTAL SERUM 5.8 g/dL (6.0-8.3)
[2016-11-27 12:25] LABS: CHOLESTEROL 132 mg/dL (0-200); HDL CHOLESTEROL 23 mg/dL (29-75); LDL CHOLESTEROL 85 mg/dL ([, -130]); LDL/HDL RATIO 4 RATIO (0-4); TRIGLYCERIDES 120 mg/dL (10-160)
[2016-11-28 00:52] LABS: HA AB IGM (HEPPAN) Nonreactive (()); HB CORE AB IGM (HEPPAN) Nonreactive (Nonreactive); HB S AG (HEPPAN) Nonreactive (Nonreactive); HEP C AB (HEPPAN) Nonreactive (Nonreactive); HEP C AB SIGNAL TO CUTOFF 0.02 ratio (<1.00)
[2016-11-28 07:04] LABS: ALBUMIN SERUM 2.5 g/dL (3.5-5.0); BILIRUBIN,TOTAL 0.8 mg/dL (0.2-2.0); BUN/CREATININE RATIO 16.87; CALCIUM SERUM 8.6 mg/dL (8.4-10.2); CREATININE SERUM 1.6 mg/dL (0.6-1.4); GLOM FILT RATE Estimated 53.5 mL/min (>60); POTASSIUM 4.3 mmol/L (3.5-5.1); PROTEIN TOTAL SERUM 5.3 g/dL (6.0-8.3)
[2016-11-28 11:55] LABS: ALDOSTERONE SERUM 1 ng/dL (***)
[2016-11-28 23:01] LABS: ANA SCREEN Negative (Negative); MYELOPEROXIDASE AB (PNL) <1.0 AI (<1.0); PROTEINASE-3 AB (PNL) <1.0 AI (<1.0)
[2016-11-29 05:12] LABS: HEMATOCRIT 37.9 % (38.0-50.0); HEMOGLOBIN 11.9 gm/dL (13.0-16.0); MEAN CELL VOLUME 79.5 FL (83-96); MEAN CORPUSCULAR HGB CONC 31.4 g/dL (30-36); MEAN PLATELET VOLUME 6.7 FL (6.5-11.5); RED BLOOD COUNT 4.76 X10e (3.90-5.60); RED CELL DISTRIBUTION WIDTH 18.2 % (11.0-15.5); WHITE BLOOD COUNT 10.8 X10e3 (4.0-10.5)
[2016-11-29 05:26] LABS: INR 1.2; PROTHROMBIN TIME (PATIENT) 12.7 SECONDS (9.6-11.5)
[2016-11-29 06:24] LABS: BUN/CREATININE RATIO 17.05; CALCIUM SERUM 8.7 mg/dL (8.4-10.2); CREATININE SERUM 1.7 mg/dL (0.6-1.4); GLOM FILT RATE Estimated 49.7 mL/min (>60); POTASSIUM 3.8 mmol/L (3.5-5.1)
[2016-11-29] MEDS ORDERED: HYDRALAZINE HC100 MG PO (13:15)
[2016-11-29] MEDS ORDERED: MINOXIDIL2.5 MG PO (13:16)
[2016-11-29] MEDS ORDERED: RAMIPRIL5 MG PO (13:19)
[2016-11-29] MEDS ORDERED: ALDACTONE100 MG PO (13:20)
[2016-11-29] MEDS ORDERED: ACETAMINOPHEN325 MG PO (13:22)
[2016-11-29] MEDS ORDERED: CARVEDILOL12.5 MG PO (13:23)
[2016-11-29] MEDS ORDERED: NORVASC10 MG PO (13:23)
[2016-11-29] MEDS ORDERED: CEFDINIR300 M2 PO (13:24)
[2016-11-29] MEDS ORDERED: FUROSEMIDE40 MG PO (13:25)
[2016-11-29] MEDS ORDERED: LIPITOR20 MG PO (13:26)
[2016-12-01 11:29] LABS: METANEPHRINES URINE 512 mcg/24 h (36-190); NORMETANEPHRINE URINE 526 mcg/24 h (35-482)
== END 2016-11-29 14:39 | disposition home or self-care (01) | DRG 286 ==
LOC: CED 16:39 → CEDOF 19:00 → C5B 21:46
PROVIDERS: Emergency Medicine; Family Medicine; Internal Medicine; Internal Medicine Cardiovascular Disease; Internal Medicine Nephrology
PROC: B24BZZZ Ultrasonography of Heart with Aorta (ICD-10-PCS; 2016-11-24)
PROC: 4A023N7 Measurement of Cardiac Sampling and Pressure, Left Heart, Percutaneous Approach (ICD-10-PCS; principal; 2016-11-29)
PROC: B2111ZZ Fluoroscopy of Multiple Coronary Arteries using Low Osmolar Contrast (ICD-10-PCS; 2016-11-29)
PROC: B2151ZZ Fluoroscopy of Left Heart using Low Osmolar Contrast (ICD-10-PCS; 2016-11-29)
DX: I13.0 Hypertensive heart and chronic kidney disease with heart failure and stage 1 through stage 4 chronic kidney disease, or unspecified chronic kidney disease (principal); I50.23 Acute on chronic systolic (congestive) heart failure; J96.01 Acute respiratory failure with hypoxia; A41.9 Sepsis, unspecified organism; J18.9 Pneumonia, unspecified organism; I42.9 Cardiomyopathy, unspecified; N17.9 Acute kidney failure, unspecified; N18.3 Chronic kidney disease, stage 3 (moderate); E11.9 Type 2 diabetes mellitus without complications; D64.9 Anemia, unspecified; E87.1 Hypo-osmolality and hyponatremia; I42.6 Alcoholic cardiomyopathy; E86.0 Dehydration; I16.0 Hypertensive urgency; F17.210 Nicotine dependence, cigarettes, uncomplicated; E87.6 Hypokalemia; K59.00 Constipation, unspecified; F10.20 Alcohol dependence, uncomplicated; G47.33 Obstructive sleep apnea (adult) (pediatric); I34.0 Nonrheumatic mitral (valve) insufficiency
CPT/HCPCS: 36415; 71010; 74177; 74183; 80048; 80053; 80061; 80074; 80076; 80307; 81003; 82088; 82150; 82308; 82384; 82530; 82550; 82570; 82947; 83036; 83520; 83605; 83690; 83735; 83835; 83880; 84132; 84156; 84244; 84484; 85025; 85027; 85610; 85730; 86021; 86038; 86039; 86160; 86334; 87040; 87086; 93005; 93306; 94660; 94760; 96361; 96374; 96375; 99285; A9577; C1769; C1887; C1894; C9113; J0360; J0456; J0696; J1170; J1250; J1644; J1650; J2250; J2270; J2405; J3010; J3475; Q9967

== ENCOUNTER 2016-12-09 11:16 | Inpatient (IN) | payer OTHER ==
--- NOTE | ~2016-12-09 | CO ---
Unit #: [id number] #: [id number] Patient: DOTTY RAE [id number] [id number] [facility]. [place], [place] [address] [id number] I MR#: [id number] NAME: DOTTY RAE ROOM: 337 Age: 41 Sex: M Admission Date: 12/09/2016 : 1975 Attending Physician: Jannette Owen M.D. Primary Care Physician: Chela Phan Aprn Consultation Date: 12/09/2016 CONSULTATION REPORT REASON FOR CONSULTATION Acute renal failure and hyperkalemia. HISTORY OF PRESENT ILLNESS This 41-year-old white male was just recently discharged on 11/29/2016 after being admitted for hypertensive urgency, acute kidney injury, and systolic heart failure. He had multiple tests. The culmination was that he had renal insufficiency, likely on the basis of hypertension and my partner, Dr. Arceo, was searching for a secondary cause of his hypertension. The patient also had a cardiac cath, that showed and ejection fraction of 35% to 40% and no obstructive disease. He was sent home with close followup with his primary care physician, Dr. Arceo, and he was set up for some type of scan at [facility], that I do not know the details. He was found to have an adrenal nodule. He comes back in to the ER after the PCP labs resulted showing a potassium of 6.5, BUN and creatinine of 84 and 4.2. On 11/29/2016, his creatinine was 1.7. His blood pressure in emergency room also was low at 103/79. The patient has home blood pressure showing systolic 110s and 120s. When he was in the hospital 10 days ago, his blood pressure was recorded as high as 220/160. The patient has not had any specific complaints. He said he has been eating and drinking okay. He has not been having nausea, vomiting, or diarrhea. He is not taking NSAIDs. He is a former alcoholic, but has not used alcohol in over 6 months. He also is a smoker and has not smoked in 2 weeks. PAST MEDICAL HISTORY 1. Prediabetes. 2. Newly diagnosed uncontrolled hypertension. 3. Newly diagnosed renal insufficiency. 4. Left adrenal nodule. 5. Systolic heart failure with an ejection fraction of 35% to 40% and severe mitral valve regurgitation by 11/2016 echo. SOCIAL HISTORY He is . He has three children. He works in the [employer] business. His mother and father are here and very supportive. He quit smoking two weeks ago and quit drinking alcohol heavily about 6 months ago. FAMILY HISTORY Negative for renal disease and positive for hypertension. REVIEW OF SYSTEMS He denies blurry vision. He denies headaches. He denies shortness of breath. He denies chest pain. He denies heart palpitations. He denies Unit #: [id number] #: [id number] Patient: DOTTY RAE abdominal pain, nausea, or vomiting. No urinary symptoms. No swelling. Other 13 systems reviewed unless noted are negative. PHYSICAL EXAMINATION VITAL SIGNS: Current blood pressure is 110/72, heart rate is 85. GENERAL: He is an anxious white male, who is in no acute distress. HEENT: Extraocular muscles are intact. No eye drainage or icterus. Oropharynx is clear without lesion. NECK: Supple without JVD, thyromegaly, or carotid bruit. CHEST: Clear to auscultation bilaterally. CARDIAC: S1 and S2. Normal sinus rhythm. No gallop or rub. ABDOMEN: Soft, nontender, nondistended. Positive bowel sounds. EXTREMITIES: No cyanosis, clubbing, or edema. DIAGNOSTIC STUDIES LABORATORY RESULTS: Shows a sodium 129, potassium 6.5, chloride 101, bicarbonate of 15, BUN of 84, creatinine of 4.2, glucose of 166, albumin of 2.5. Urinalysis; negative blood, negative protein. Hemoglobin of 13, white blood cell count of 13, platelet count of 267. On 11/25/2016, renin was 16, BECKY was negative, ANCA was negative, aldosterone is 1, serum immunofixation was negative. Urine metanephrines were elevated at 512. Urine catecholamine was 56 and normal. On 11/29/2016, creatinine was 1.7. HOME MEDICATIONS Coreg 12.5 mg b.i.d., Lipitor 20 mg daily, Lasix 40 mg b.i.d., Norvasc 10 mg daily, minoxidil 2.5 mg b.i.d. He completed a course of Omnicef, Altace 5 mg daily, and Aldactone 100 mg b.i.d. ASSESSMENT AND PLAN 1. Acute renal failure and hyperkalemia. I think this is most likely due to decreased renal perfusion related to relative low blood pressure in the setting of Altace and Aldactone. The patient looks dry on exam, and he has a benign urinalysis, so I plan to bump up his normal saline, and I would like to have his blood pressure rise to 140s to 150s range as he likely has been hypertensive for a very long time and will be corrected slowly. 2. Hyperkalemia, certainly this is concerning that he may need dialysis. He has had albuterol, insulin and D50, Kayexalate and is now being hydrated. He is making urine, so hopefully he will excrete potassium and not require dialysis for removal. 3. Systolic heart failure with an ejection fraction of 35% to 40% with severe mitral regurgitation. He had an 11/2016 echo and also had an 11/2016 cardiac cath and has seen Dr. Mcgrath. There is no evidence that he is in congestive heart failure at present. 4. Uncontrolled hypertension, now with relative hypotension. The patient presented to the emergency room 10 days ago with uncontrolled hypertension and was undergoing a workup for secondary causes. This workup will be continued. Again today, he is over controlled on his blood pressure and his medicines will be held. Thank you very much for allowing me to see Dotty Rae in consultation. We will follow closely with you. Dictated by... Cheyenne Jett M.D. STEVE/omer Unit #: [id number] #: [id number] Patient: DOTTY RAE TD: 12/10/2016 06:06 JOB #: [id number] CC: Prabhakar Arceo Jr., M.D. CONSULTATION REPORT Page 1 of 1 X Cheyenne Jett MD CONSULTATION REPORT
--- NOTE | ~2016-12-09 | HP ---
Unit #: [id number] #: [id number] Patient: DOTTY RAE [id number] [address] [address] [id number] I MR#: [id number] NAME: DOTTY RAE ROOM: 337 Age: 41 Sex: M Admission Date: 12/09/2016 : 1975 Attending Physician: Pura Marie M.D. Primary Care Physician: Chela Phan Aprn HISTORY AND PHYSICAL CHIEF COMPLAINT Abnormal labs. HISTORY OF PRESENT ILLNESS The patient is a 41-year-old male with the history of pre-diabetes, hypertension, and chronic kidney disease, brought to the emergency room from the PCP office. The patient was recently discharged from the hospital on 11/29/2016 with a prolonged hospitalization secondary to the acute hypoxic respiratory failure, multifocal pneumonia, systolic heart failure with ejection fraction of 30% to 40%, alcohol-induced cardiomyopathy, chronic kidney disease with baseline creatinine 1.8. The patient had blood work yesterday at the PCP office and was found to have a creatinine of 2.9 and potassium of 6.2. The patient is brought to the emergency room for the above reasons. The patient complains of feeling fatigued. Denies any chest pain, palpitations, arrhythmias, headache or nausea. The patient denies any new medications. The patient has been in the process of workup for the pheochromocytoma with blood and urine tests. PAST MEDICAL HISTORY 1. History of alcohol-induced cardiomyopathy. 2. Chronic systolic heart failure. 3. Kvvkbogv-lt-durpjk mitral regurgitation. 4. Chronic kidney disease. 5. Anemia. 6. Renal nodules. PAST SURGICAL HISTORY None. HOME MEDICATIONS 1. Tylenol. 2. Coreg. 3. Amlodipine. 4. Lasix. 5. Lipitor. 6. Hydralazine. 7. Minoxidil. 8. Ramipril. ALLERGIES No known drug allergies. SOCIAL HISTORY He smokes one-fourth of a pack per day. Denies any alcohol abuse. Unit #: [id number] #: [id number] Patient: DOTTY RAE FAMILY HISTORY No history of coronary artery disease or diabetes. REVIEW OF SYSTEMS A 14-point review of systems performed and only pertinent positive findings as described above, remaining are negative. PHYSICAL EXAMINATION VITAL SIGNS: Temperature 98.2, pulse 71, respiratory rate 14, blood pressure 130/78, saturating 100% at room air. GENERAL: Patient is lying on the bed not in acute distress. HEENT: Atraumatic, normocephalic. Pupils equal, round, and reactive to light and accommodation. Extraocular movements are intact. NECK: Supple. LUNGS: Decreased air entry at the bases. HEART: Regular rate and rhythm. ABDOMEN: Soft, positive bowel sounds. EXTREMITIES: No cyanosis, no clubbing. NEUROLOGIC: Alert, awake, oriented. No gross focal motor deficit. DIAGNOSTIC STUDIES LABORATORY: Glucose 166, BUN 34, creatinine 4.2 from the baseline of 1.7 to 1.8, sodium 129, potassium 6.5, chloride 101, bicarb 15. INR 1.2. WBC 13.3, hemoglobin 13.3, hematocrit 42.2, platelets 267, neutrophils 81.1. UA is negative. CARDIOVASCULAR: EKG shows no acute ST-T changes. No T wave changes. Shows T-wave inversions, similar to the previous EKGs in the lateral leads. ASSESSMENT AND PLAN 1. Hyperkalemia. 2. Acute kidney injury. 3. Chronic systolic heart failure. PLAN 1. Admit patient as inpatient. 2. The patient has received the cocktail in the emergency room with D50 and Regular insulin, Kayexalate and fluids. 3. Will hold potassium-sparing diuretic with Aldactone and Lasix and will hold AARON inhibitors and hold the Lasix. 4. Continue with gentle fluids at 50 mL per hour for 10 hours. 5. Have Renal consult with Dr. Arceo. 6. Patient will have the workup for the pheochromocytoma with the enzymes and urine and blood tests. 7. Further recommendations will follow. Dictated by Damien Easton TD: 12/09/2016 15:57 Unit #: [id number] #: [id number] Patient: DOTTY RAE JOB #: [id number] HISTORY AND PHYSICAL Page 1 of 1 X X HISTORY AND PHYSICAL
--- NOTE | ~2016-12-09 | EKG ---
PATIENT: DOTTY RAE UNIT #: [id number] Ventricular Rate: 72 BPM Atrial Rate: 72 BPM P-R Interval: 174 ms QRS Duration: 94 ms Q-T Interval: 376 ms QTC Calculation(Bezet): 411 ms P Trivoli: 40 degrees Calculated R Trivoli: 60 degrees Calculated T Trivoli: 7 degrees Diagnosis Line: Normal sinus rhythm Diagnosis Line: T wave abnormality, consider lateral ischemia Diagnosis Line: Abnormal ECG Diagnosis Line: When compared with ECG of 29-NOV-2016 05:48, Diagnosis Line: QT has shortened Diagnosis Line: Confirmed by PRIYA MITTAL MD ([id number]) on 12/11/2016 Diagnosis Line: 8:31:11 PM INTERPRETING MD: DAXA RAMIREZ
--- NOTE | ~2016-12-09 | CR72 ---
[facility] A Service [facility] RADIOLOGY TEXT RESULTS PATIENT: DOTTY RAE LOCATION: [facility] : [birth year] UNIT #: [id number] AGE: [address]: HOMA MARIE MD SEX: M ORDER DR: [id number] [address] [address] [id number] I MR#: [id number] Acc #: [id number] NAME: DOTTY RAE : 1975 SEX: M STUDY DATE/TIME: 12/09/2016 13:09 UNIT: [address] ROOM: [facility] STUDY DESCRIPTION: CR Chest Single View Portable Attending Physician: Homa Marie M.D. Ordering Physician: Ed Sergei Zacarias M.D. Primary Care Physician: Chela Phan Aprn MEDICAL IMAGING REPORT This report is preliminary unless electronic signature is present EXAM Portable chest x-ray 12/09/2016. HISTORY Short of air, abnormal labs. Sent by primary doctor yesterday. Smoker quit 2 weeks ago. TECHNIQUE AP radiograph of the chest is presented. COMPARISON 11/27/2016 FINDINGS Stable mild cardiac enlargement. The lungs are well inflated without evidence of acute infectious or inflammatory disease, pleural effusion or pneumothorax. No suspicious nodule. Patchy bilateral parenchymal densities seen on prior examination have resolved. No acute-appearing bony abnormality. Dictated by... Jose Stoner M.D. THIS IS AN ELECTRONICALLY VERIFIED REPORT Jose Stoner M.D. at 12/09/2016 6:48 PM CRISTINE/mariana TD: 12/09/2016 16:23 JOB #: [id number] MEDICAL IMAGING REPORT [facility] A [facility] RADIOLOGY TEXT RESULTS PATIENT: DOTTY RAE LOCATION: [facility] : [birth year] UNIT #: [id number] AGE: [address]: HOMA MARIE MD SEX: M ORDER DR: Page 1 of 1 COPY
[~2016-12-09 11:16] MED LIST: ACETAMINOPHEN325 MG PO; ALDACTONE100 MG PO; CARVEDILOL12.5 MG PO; CEFDINIR300 M2 PO; FUROSEMIDE40 MG PO; HYDRALAZINE HC100 MG PO; LIPITOR20 MG PO; MINOXIDIL2.5 MG PO; NO MEDICATIONS; NORVASC10 MG PO; RAMIPRIL5 MG PO
[2016-12-09 11:57] LABS: URINE SOURCE CLEAN CATCH
[2016-12-09 12:00] LABS: BASOPHIL# 0.1 X10e3 (0-0.3); BASOPHIL% 0.7 % (0-2.5); EOSINOPHIL# 0.4 X10e3 (0-0.7); EOSINOPHIL% 2.9 % (0.0-7.0); HEMATOCRIT 42.2 % (38.0-50.0); HEMOGLOBIN 13.3 gm/dL (13.0-16.0); LYMPHOCYTE# 0.9 X10e3 (1.0-3.5); LYMPHOCYTE% 6.6 % (17.0-45.0); MEAN CELL VOLUME 79.6 FL (83-96); MEAN CORPUSCULAR HEMOGLOBIN 25.1 PG (28-34); MEAN CORPUSCULAR HGB CONC 31.5 g/dL (30-36); MEAN PLATELET VOLUME 8.2 FL (6.5-11.5); MONOCYTE# 1.2 X10e3 (0-1.0); MONOCYTE% 8.7 % (3.0-12.0); NEUTROPHIL# 10.8 X10e3 (1.5-7.1); NEUTROPHIL% 81.1 % (40-75); PLATELET COUNT 267 X10e3 (140-420); RED CELL DISTRIBUTION WIDTH 18.6 % (11.0-15.5); WHITE BLOOD COUNT 13.3 X10e3 (4.0-10.5)
[2016-12-09 12:02] LABS: DIFF IND NO
[2016-12-09 12:03] LABS: URINE APPEARANCE CLEAR; URINE BILIRUBIN NEG (NEG); URINE BLOOD NEG (NEG); URINE COLOR YELLOW; URINE GLUCOSE NEG (NEG); URINE KETONE NEG (NEG); URINE LEUKOCYTE ESTERASE NEG (NEG); URINE NITRATE NEG (NEG); URINE PROTEIN NEG (NEG); URINE SPECIFIC GRAVITY 1.011 (1.003-1.035); URINE UROBILINOGEN 0.2 MG/DL (NEG)
[2016-12-09 12:05] LABS: CULTURE INDICATED? NO
[2016-12-09 12:34] LABS: CALCIUM SERUM 9.8 mg/dL (8.4-10.2); CREATININE SERUM 4.2 mg/dL (0.6-1.4); GLOM FILT RATE Estimated 16.7 mL/min (>60)
[2016-12-09 12:36] LABS: POTASSIUM 6.5 mmol/L (3.5-5.1)
[2016-12-09 13:24] LABS: POC - CKMB 1.5 ng/mL (0.0-7.9); POC - TROPONIN <0.05 ng/mL (<=0.05)
[2016-12-10 07:40] LABS: HEMATOCRIT 36.7 % (38.0-50.0); HEMOGLOBIN 11.7 gm/dL (13.0-16.0); MEAN CORPUSCULAR HEMOGLOBIN 25.2 PG (28-34); MEAN CORPUSCULAR HGB CONC 31.8 g/dL (30-36); MEAN PLATELET VOLUME 8.2 FL (6.5-11.5); RED BLOOD COUNT 4.64 X10e (3.90-5.60); RED CELL DISTRIBUTION WIDTH 17.8 % (11.0-15.5); WHITE BLOOD COUNT 9.8 X10e3 (4.0-10.5)
[2016-12-10 08:05] LABS: BUN/CREATININE RATIO 21.25; CALCIUM SERUM 8.4 mg/dL (8.4-10.2); CREATININE SERUM 3.2 mg/dL (0.6-1.4); GLOM FILT RATE Estimated 23.1 mL/min (>60); POTASSIUM 5.3 mmol/L (3.5-5.1)
[2016-12-11 08:58] LABS: BASOPHIL# 0.1 X10e3 (0-0.3); BASOPHIL% 1.1 % (0-2.5); EOSINOPHIL# 0.4 X10e3 (0-0.7); EOSINOPHIL% 4.6 % (0.0-7.0); HEMATOCRIT 37.3 % (38.0-50.0); HEMOGLOBIN 11.8 gm/dL (13.0-16.0); LYMPHOCYTE# 1.3 X10e3 (1.0-3.5); LYMPHOCYTE% 16.1 % (17.0-45.0); MEAN CORPUSCULAR HGB CONC 31.7 g/dL (30-36); MONOCYTE# 0.9 X10e3 (0-1.0); MONOCYTE% 10.7 % (3.0-12.0); NEUTROPHIL# 5.5 X10e3 (1.5-7.1); NEUTROPHIL% 67.5 % (40-75); PLATELET COUNT 257 X10e3 (140-420); RED BLOOD COUNT 4.72 X10e (3.90-5.60); RED CELL DISTRIBUTION WIDTH 18.2 % (11.0-15.5); WHITE BLOOD COUNT 8.1 X10e3 (4.0-10.5)
[2016-12-11 09:01] LABS: DIFF IND NO
[2016-12-11 09:29] LABS: CALCIUM SERUM 8.4 mg/dL (8.4-10.2); GLOM FILT RATE Estimated 40.8 mL/min (>60); POTASSIUM 4.7 mmol/L (3.5-5.1)
== END 2016-12-11 14:44 | disposition home or self-care (01) | DRG 683 ==
LOC: CED 11:16 → CEDOF 13:30 → C3A PCU 15:46
PROVIDERS: Emergency Medicine; Family Medicine; Internal Medicine
DX: N17.9 Acute kidney failure, unspecified (principal); E87.1 Hypo-osmolality and hyponatremia; I50.22 Chronic systolic (congestive) heart failure; E87.2 Acidosis; I13.0 Hypertensive heart and chronic kidney disease with heart failure and stage 1 through stage 4 chronic kidney disease, or unspecified chronic kidney disease; I42.6 Alcoholic cardiomyopathy; E87.5 Hyperkalemia; Z82.49 Family history of ischemic heart disease and other diseases of the circulatory system; D64.9 Anemia, unspecified; I34.0 Nonrheumatic mitral (valve) insufficiency; N28.89 Other specified disorders of kidney and ureter; F10.20 Alcohol dependence, uncomplicated; N18.9 Chronic kidney disease, unspecified
CPT/HCPCS: 36415; 71010; 80048; 81003; 82553; 83880; 84132; 84484; 85025; 85027; 93005; 94640; 99285; J7060